=== PATIENT | female | born 1955 | race Caucasian/White ===

== ENCOUNTER 2018-04-06 08:25 | Outpatient (CLI) | payer BC, OTHER | END 2018-04-06 08:26 | disposition home or self-care (01) | LOC: BICMAMMO 08:25 | PROVIDERS: ATTEND Internal Medicine Hematology & Oncology | DX: Z08 Encounter for follow-up examination after completed treatment for malignant neoplasm (principal); R92.1 Mammographic calcification found on diagnostic imaging of breast; Z85.3 Personal history of malignant neoplasm of breast | CPT/HCPCS: G0279 ==

== ENCOUNTER 2018-08-02 09:06 | Outpatient (CLI) | payer BC, OTHER ==
--- NOTE | 2018-08-02 12:00 | MRI ---
MR OF THE LEFT HINDFOOT WITHOUT CONTRAST: Indication: History of peroneal tendonitis. FINDINGS: There is a mild amount of fluid surrounding the peroneal tendon sheath at the level of the lateral re tinaculum. There is moderate tendinosis of the peroneus longus tendon just distal to the cubital tunn el through the level of its insertion and is best seen on Image 11 of Series 5 and Image 13 of Series 8. The peroneal brevis tendon appears intact. The medial flexor tendons appear within normal limits. The extensor tendons are normal appearing. The Achilles tendon is normal appearing. ATFL, PTFL, calcaneofibular, syndesmotic and deltoid ligaments appear intact. The spring ligament larry ears intact. No osteochondral lesion is identified within the talar dome. No joint effusion is eviden t. Visualized lisfranc ligament is intact. The sinus tarsus have normal signal intensity. The plantar fascia appears within normal limits. IMPRESSION: 1. Moderate tendonosis of the peroneus longus tendon, distal to the cubital tunnel through the level to insertion. There is mild tenosynovitis of the peroneal tendons at the level of the lateral retinac ulum. Peroneus brevis appears intact. 2. No additional acute abnormality seen. POS: [facility]
== END 2018-08-02 09:07 | disposition home or self-care (01) ==
LOC: BICMRI 09:06
PROVIDERS: ATTEND Podiatrist Foot & Ankle Surgery
DX: M76.72 Peroneal tendinitis, left leg (principal); M65.862 Other synovitis and tenosynovitis, left lower leg

== ENCOUNTER 2020-04-24 15:34 | Outpatient (CLI) | payer BC ==
--- NOTE | 2020-04-24 15:55 | MMO ---
Bilateral MAMMO Bilat Screen [facility]. CLINICAL HISTORY: Patient is 65 years old and is seen for screening. The patient has no family history of breast cancer. The patient has a history of right Mastectomy in 2014 and right Transflap in 2014. VIEWS: The views performed were: left craniocaudal with tomosynthesis and left mediolateral oblique with tomosynthesis. FILMS COMPARED: The present examination has been compared to prior imaging studies performed at [facility] on 12/31/2015, 03/01/2017 and 04/06/2018, and at [facility] on 12/07/2014. This study has been interpreted with the assistance of computer-aided detection. MAMMOGRAM FINDINGS: There are scattered fibroglandular densities. There are stable benign appearing calcifications seen in the left breast. There are no suspicious masses, calcifications or areas of architectural distortion. IMPRESSION: THERE IS NO MAMMOGRAPHIC EVIDENCE OF MALIGNANCY. A ROUTINE FOLLOW-UP MAMMOGRAM IN 1 YEAR IS RECOMMENDED. THE RESULTS OF THIS EXAM WERE SENT TO THE PATIENT. ACR BI-RADS Category 2 - Benign finding MAMMOGRAPHY NOTE: 1. A negative mammogram report should not delay a biopsy if a dominant of clinically suspicious mass is present. 2. Approximately 10% to 15% of breast cancers are not detected by mammography. 3. Adenosis and dense breasts may obscure an underlying neoplasm. Reported by: LISA ELLIS MD Electonically Signed: [id number]
== END 2020-04-24 15:35 | disposition home or self-care (01) ==
LOC: BICMAMMO 15:34
PROVIDERS: ATTEND Internal Medicine Hematology & Oncology
DX: Z12.31 Encounter for screening mammogram for malignant neoplasm of breast (principal); Z90.11 Acquired absence of right breast and nipple; Z98.890 Other specified postprocedural states
CPT/HCPCS: 77063; 77067

== ENCOUNTER 2023-09-10 14:24 | Outpatient (CLI) | payer MEDICARE, BC | END 2023-09-10 14:25 | disposition home or self-care (01) | LOC: BICMAMMO 14:24 | PROVIDERS: ATTEND Internal Medicine Hematology & Oncology | DX: Z12.31 Encounter for screening mammogram for malignant neoplasm of breast (principal); Z85.3 Personal history of malignant neoplasm of breast; Z90.11 Acquired absence of right breast and nipple | CPT/HCPCS: 77063; 77067 ==

== ENCOUNTER 2024-11-27 12:56 | Outpatient (CLI) | payer MEDICARE | END 2024-11-27 12:57 | disposition home or self-care (01) | LOC: BICMAMMO 12:56 | PROVIDERS: ATTEND Internal Medicine Hematology & Oncology | DX: Z12.31 Encounter for screening mammogram for malignant neoplasm of breast (principal); M81.0 Age-related osteoporosis without current pathological fracture; M85.89 Other specified disorders of bone density and structure, multiple sites; Z90.11 Acquired absence of right breast and nipple; Z78.0 Asymptomatic menopausal state | CPT/HCPCS: 77063; 77067; 77080 ==